=== PATIENT | female | born 1970 | race African-American/Black ===

== ENCOUNTER 2016-07-16 12:19 | Emergency (ER) | payer OTHER ==
[~2016-07-16] VITALS: Ht 172.7 cm; Wt 101.7 kg
[~2016-07-16 12:19] MED LIST: AMOXICILLIN500 MG PO; CEFDINIR300 MG PO; CYCLOBENZAPRINE 10 M; CYCLOBENZAPRINE 10MG; CYCLOBENZAPRINE10 MG PO; DESYREL100 MG; DESYREL100 MG PO; EFFEXOR25 MG PO; ENDOCET 5-3251 EACH; FLEXERIL10 MG PO; GABAPENTIN300 MG PO; HYDROCODON-ACE1 EAC2; KLONOPIN1 MG PO; MEDROL DOSEPAK4 MG PO; MELOXICAM15 MG PO; METFORMIN HCL500 MG PO; NAPROSYN500 MG; NAPROSYN500 MG PO; PERCOCET 5/31 TABLET PO; PRAZOSIN HCL1 MG; PRAZOSIN HCL2 MG; PRAZOSIN HCL2 MG PO; PREDNISONE10 MG; PROAIR HFA8.5 GM IH; SEROQUEL XR200 MG; SEROQUEL XR50 MG; SEROQUEL200 MG PO; TRAMADOL HCL50 MG; TRAMADOL HCL50 MG PO; ULTRAM50 MG PO; VIIBRYD20 MG; VIIBRYD40 MG PO; ZOLOFT100 MG
[2016-07-16 14:47] VITALS: BP 129/75
== END 2016-07-16 14:48 | disposition home or self-care (01) ==
LOC: EME 12:19 → RME 12:19
DX: S82.112A Displaced fracture of left tibial spine, initial encounter for closed fracture (principal); W01.0XXA Fall on same level from slipping, tripping and stumbling without subsequent striking against object, initial encounter; Y93.E1 Activity, personal bathing and showering; E11.9 Type 2 diabetes mellitus without complications; Z79.84 Long term (current) use of oral hypoglycemic drugs; Z79.891 Long term (current) use of opiate analgesic; Z98.890 Other specified postprocedural states
CPT/HCPCS: 73564; 99281; 99284; J1885

== ENCOUNTER 2017-01-04 14:22 | Emergency (ER) | payer OTHER ==
[~2017-01-04] VITALS: Ht 172.7 cm; Wt 101.3 kg
[2017-01-04] MEDS ORDERED: NAPROSYN500 MG PO (17:38)
[2017-01-04] MEDS ORDERED: TRAMADOL HCL50 MG PO (17:38)
[2017-01-04 18:00] VITALS: BP 112/80
== END 2017-01-04 18:01 | disposition home or self-care (01) ==
LOC: EME 14:22
DX: M25.462 Effusion, left knee (principal); M17.12 Unilateral primary osteoarthritis, left knee; E11.9 Type 2 diabetes mellitus without complications; Z79.84 Long term (current) use of oral hypoglycemic drugs; Z98.890 Other specified postprocedural states; F17.200 Nicotine dependence, unspecified, uncomplicated; Z71.6 Tobacco abuse counseling
CPT/HCPCS: 73564; 99281; 99284

== ENCOUNTER 2017-04-27 23:01 | Emergency (ER) | payer OTHER ==
[~2017-04-27] VITALS: Ht 172.7 cm; Wt 92.7 kg
[2017-04-28] MEDS ORDERED: COMPAZINE10 MG PO (00:45)
[2017-04-28 01:46] VITALS: BP 140/68
== END 2017-04-28 01:48 | disposition home or self-care (01) ==
LOC: EME 23:01
DX: G43.909 Migraine, unspecified, not intractable, without status migrainosus (principal); R11.2 Nausea with vomiting, unspecified; R19.7 Diarrhea, unspecified; E86.0 Dehydration; R05 Cough; J02.9 Acute pharyngitis, unspecified; E11.9 Type 2 diabetes mellitus without complications; Z79.84 Long term (current) use of oral hypoglycemic drugs; Z90.49 Acquired absence of other specified parts of digestive tract; F17.200 Nicotine dependence, unspecified, uncomplicated
CPT/HCPCS: 99281; 99285; J0780; J2270; J7040

== ENCOUNTER 2017-06-17 10:25 | Emergency (ER) | payer OTHER ==
[~2017-06-17] VITALS: Ht 172.7 cm; Wt 93.0 kg
[~2017-06-17 10:25] MED LIST changes: +COMPAZINE10 MG PO
[2017-06-17] MEDS ORDERED: NORCO 5/3251 TABLET PO (12:43)
[2017-06-17 12:52] VITALS: BP 130/69
== END 2017-06-17 13:01 | disposition home or self-care (01) ==
LOC: EME 10:25
DX: S83.92XA Sprain of unspecified site of left knee, initial encounter (principal); W10.9XXA Fall (on) (from) unspecified stairs and steps, initial encounter; E11.9 Type 2 diabetes mellitus without complications; Z79.84 Long term (current) use of oral hypoglycemic drugs; F17.200 Nicotine dependence, unspecified, uncomplicated
CPT/HCPCS: 73564